=== PATIENT | female | born 1990 | race Caucasian/White ===

== ENCOUNTER 2016-11-22 13:25 | Emergency (ER) | payer OTHER ==
[~2016-11-22] VITALS: Ht 154.9 cm; Wt 55.0 kg
[2016-11-22 13:28] VITALS: Ht 154.9 cm; Wt 55.0 kg
[2016-11-22] MEDS ORDERED: DIPHENHYDRAMINE 50 MG INJ IV STA (15:24)
[2016-11-22] MEDS ORDERED: SOD CHLORIDE 0.9% 1,000 ML IV STA (15:24)
[2016-11-22] MEDS ORDERED: METOCLOPRAMIDE 10 MG INJ IV STA (15:24)
[2016-11-22] MEDS ORDERED: KETOROLAC 30 MG INJ IV STA (15:24)
[2016-11-22 15:58] LABS: ADD SCAN DIFF NO
[2016-11-22 15:59] LABS: BASOPHIL # 0.1 10^3/ul (0.0-0.1); BASOPHILS % 1.1 % (0.0-2.0); EOSINOPHILS # 0.1 10^3/ul (0.0-0.5); EOSINOPHILS % 1.3 % (0.0-7.0); HEMATOCRIT 38.3 % (37.0-47.0); LYMPHOCYTES # 1.4 10^3/ul (0.8-2.9); LYMPHOCYTES % 25.9 % (15.0-51.0); MEAN CORPUSCULAR HEMOGLOBIN 31.9 pg (29.0-33.0); MEAN CORPUSCULAR HGB CONC 33.9 g/dl (32.0-37.0); MEAN CORPUSCULAR VOLUME 93.9 fl (82.0-101.0); MEAN PLATELET VOLUME 10.5 fl (7.4-10.4); MONOCYTE # 0.2 10^3/ul (0.3-0.9); MONOCYTES % 4.4 % (0.0-11.0); NEUTROPHIL # 3.7 10^3/ul (1.6-7.5); NEUTROPHILS % 67.1 % (39.0-77.0); PLATELET COUNT 277 10^3/UL (140-415); RED BLOOD COUNT 4.08 10^6/ul (4.20-5.40); RED CELL DISTRIBUTION WIDTH 11.9 % (11.5-14.5); WHITE BLOOD COUNT 5.5 10^3/ul (4.8-10.8)
[2016-11-22 16:14] LABS: INR 0.91; PROTIME 12.3 Sec (12.2-14.2)
[2016-11-22 16:15] LABS: PARTIAL THROMBOPLASTIN TIME 27.2 Sec (25.0-35.0)
[2016-11-22 16:21] LABS: CREATININE 0.54 mg/dl (0.44-1.00); POTASSIUM 4.1 mmol/L (3.5-5.1)
--- NOTE | 2016-11-22 16:23 | RADRPT ---
PROCEDURE: CT Head without. CLINICAL INDICATION: Headache. TECHNIQUE: The study was performed utilizing a multi-slice, multidetector CT scanner. Direct spira l 1 mm axial sections were obtained through the head without the use of intravenous contrast materia l. 1 or more of the following dose reduction techniques were utilized: Automated exposure control, adjustment of the mA and/or kV according to patient's size, iterative reconstruction technique. Co pk and sagittal reformations were obtained. The images were reviewed on a PACS workstation. RADIATION DOSE: CTDIvol: 45.0 mGyDLP: 630.2 mGy-cm COMPARISON: No prior studies are available for comparison. FINDINGS: There is no intracranial hemorrhage, extra-axial fluid collection, mass lesion, midline shift or hyd rocephalus. The ventricles, sulci and cisterns are within normal limits. The white matter is unrem arkable. The brown-white matter differentiation is preserved. The basal cisterns are patent. The m idline structures are intact. The orbits, calvarium and extracranial soft tissues are normal in denis earance. The visualized paranasal sinuses, mastoid air cells and middle ear cavities are normally ae rated. IMPRESSION: 1. No acute intracranial abnormality. No intracranial hemorrhage, extra-axial fluid collection, ma ss lesion or hydrocephalous. RPTAT: DD .Juve Warren MD, MD Date Time Electronically viewed and signed by .Juve Warren MD, MD on 11/22/2016 16:23 .S/
[2016-11-22] MEDS ORDERED: IBUP-1542 PO (16:53)
--- NOTE | 2016-11-22 17:43 | ERD ---
ER Documentation Chief Complaint Date/Time DATE: 11/22/16 TIME: 17:40 Chief Complaint rt ear pain , rt side headcahe , sore throat x 1 week HPI This is a 26-year-old female presents to the ER with multiple complaints. Last Sunday patient had one episode of syncope at work she was taken to the ER was diagnosed with vertigo. Patient went to her primary care doctor and was told to continue medication for vertigo. Last night patient developed sore throat, right ear pain and right-sided headache. Patient states that she had a lot of congestion and vomited up phlegm. She does not have any cough. Patient denies any vision loss or vision changes. She denies any weaknesses, numbness or tunneling of her extremities. Pain is throbbing in quality and is severe and constant. Patient denies any trauma. She denies any fevers or chills. She denies any neck stiffness or neck pain. ROS 12 point review of systems was done, all negative except per HPI. Medications Home Meds Active Scripts Ibuprofen* (Motrin*) 600 Mg Tab, 600 MG PO Q6, #30 TAB Prov:DARIN ADAMS Santy 11/22/16 Allergies Allergies: Coded Allergies: No Known Allergy (Unverified , 11/22/16) PMhx/Soc Medical and Surgical Hx: pt denies Medical Hx, pt denies Surgical Hx Hx Alcohol Use: No Hx Substance Use: No Hx Tobacco Use: No Smoking Status: Never smoker Physical Exam Vitals Vital Signs Date Time Temp Pulse Resp B/P Pulse Ox O2 Delivery O2 Flow Rate FiO2 11/22/16 13:28 99.2 98 18 120/76 99 Physical Exam GENERAL: The patient is well developed and appropriate for usual state of health , in no apparent distress. HEENT: Atraumatic. Conjunctivae are pink. Pupils equal, round, and reactive to light. Extraocular muscles are grossly intact. Bilateral tympanic membranes are clear with no evidence of erythema, bulging or perforation. No sinus tenderness. NECK: C-spine is soft and supple. There is no cervical lymphadenopathy. CHEST: Clear to auscultation bilaterally. There are no rales, wheezes or rhonchi. HEART: Regular rate and rhythm. No murmurs, clicks, rubs or gallops. EXTREMITIES: Equal pulses bilaterally. There is no peripheral clubbing, cyanosis or edema. No focal swelling or erythema. Full range of motion. Grossly neurovascularly intact. NEURO: Alert and oriented. Cranial nerves II through XII are intact. Motor strength in all 4 extremities with 5/5 strength. Sensation grossly intact. Normal speech and gait. Negative Rhomberg. +2 DTRs. SKIN: There is no apparent rash or petechia. The skin is warm and dry. Result Diagram: 11/22/16 1538 11/22/16 1538 Results 24 hrs Laboratory Tests Test 11/22/16 15:38 White Blood Count 5.510^3/ul Red Blood Count 4.0810^6/ul Hemoglobin 13.0g/dl Hematocrit 38.3% Mean Corpuscular Volume 93.9fl Mean Corpuscular Hemoglobin 31.9pg Mean Corpuscular Hemoglobin Concent 33.9g/dl Red Cell Distribution Width 11.9% Platelet Count 27697^3/UL Mean Platelet Volume 10.5fl Neutrophils % 67.1% Lymphocytes % 25.9% Monocytes % 4.4% Eosinophils % 1.3% Basophils % 1.1% Nucleated Red Blood Cells % 0.0/100WBC Neutrophils # 3.710^3/ul Lymphocytes # 1.410^3/ul Monocytes # 0.210^3/ul Eosinophils # 0.110^3/ul Basophils # 0.110^3/ul Nucleated Red Blood Cells # 0.010^3/ul Prothrombin Time 12.3Sec Prothrombin Time Ratio 1.0 INR International Normalized Ratio 0.91 Activated Partial Thromboplast Time 27.2Sec Sodium Level 137mmol/L Potassium Level 4.1mmol/L Chloride Level 105mmol/L Carbon Dioxide Level 25mmol/L Anion Gap 11 Blood Urea Nitrogen 9mg/dl Creatinine 0.54mg/dl Glucose Level 97mg/dl Calcium Level 10.0mg/dl Current Medications Medications (Trade) Dose Ordered Sig/Shankar Route PRN Reason Start Time Stop Time Status Last Admin Dose Admin Sodium Chloride (NS) 1,000 ml @ 1,000 mls/hr Q1H STAT IV 11/22/16 15:24 11/22/16 16:23 DC 11/22/16 15:38 Metoclopramide HCl (Reglan) 10 mg ONCE STAT IV 11/22/16 15:24 11/22/16 15:25 DC 11/22/16 15:39 Ketorolac Tromethamine (Toradol) 30 mg ONCE STAT IV 11/22/16 15:24 11/22/16 15:25 DC 11/22/16 15:39 Diphenhydramine HCl (Benadryl) 25 mg ONCE STAT IV 11/22/16 15:24 11/22/16 15:25 DC 11/22/16 15:39 Procedures/MDM Differential Diagnosis includes but is not limited to; tension headache, migraine headache, cluster headache, sinus headache, nonspecific febrile headache, trigeminal neurologia, subdural hematoma, subarachnoid bleeding, meningitis, encephalitis. Patient is neurologically intact with no focal neurological deficits. This is a 26-year-old female that presents to the ER with multiple complaints. Patient may be having a migraine headache cluster headache. Suspicion acute angle-closure glaucoma is low. Suspicion for intracranial pathology is low. Patient is afebrile and well-appearing. Patient will be sent home with ibuprofen. She is to follow-up with her primary care doctor within 1 to days return to ER sooner if symptoms worsen. My medical decision making sure with the patient she understands and agrees with plan. Departure Diagnosis: Primary Impression: Multiple complaints Condition: Stable Patient Instructions: Headache, Migraine (Classical) Additional Instructions: Llame al doctor MAANA y corey codey DOMINGUEZ PARA DENTRO DE 1-2 SULLIVAN.Dgale a la secretaria que nosotros le instruimos hacer esta dominguez.Avise o llame si moody condicin se empeora antes de la dominguez. Regresa aqui si peor o no mejor. DARIN ADAMS November 22, 2016 17:43
== END 2016-11-22 17:26 | disposition home or self-care (01) ==
LOC: FTE 13:25
DX: H92.01 Otalgia, right ear (principal); J02.9 Acute pharyngitis, unspecified; R51 Headache; R11.10 Vomiting, unspecified
CPT/HCPCS: 36415; 70450; 80048; 85025; 85610; 85730; 96374; 96375; 99285; J1200; J1885; J2765; J7030